=== PATIENT | female | born 1940 | race Caucasian/White ===

== ENCOUNTER 2019-11-28 12:42 | Inpatient (IN) | payer OTHER ==
[~2019-11-28] VITALS: Ht 157.5 cm; Wt 69.1 kg
[~2019-11-28 12:42] MED LIST: ACT30 PO; CIPRO500 MG PO; CLARITIN10 MG PO; COR6 PO; COUMADIN2 MG PO; DIA5 PO; FER300 PO; LAC PO; LOSARTAN POTASS50 M1 PO; METFORMIN HCL500 MG; MEV20 PO; MIRUD PO; MOT400 PO; OMEPRAZOLE DR20 M1 PO; PLA75 PO; THERAGRAN-M1 TA4 PO; TRADJENTA5 M1 PO; VITAMIN D32000 I2 PO; ZES20 PO; ZIT250 PO; ZOSYN2.25 GM/50 IV
[2019-11-28 13:21] VITALS: Ht 157.5 cm; Wt 69.1 kg
[2019-11-28 14:24] LABS: BASOPHIL % 0.7 % (0-2); PLATELET COUNT 367 x10^3mcL (130-400); RED CELL DISTRIBUTION WIDTH 15.6 % (11.5-14.5)
[2019-11-28 14:39] LABS: ALKALINE PHOSPHATASE 129 U/L (46-116); ALT/SGPT 19 U/L (14-59); AST/SGOT 13 U/L (15-37); BILIRUBIN TOTAL 0.4 mg/dL (0.20-1.00); CALCIUM 8.2 mg/dL (8.5-10.1); CARBON DIOXIDE 29.9 mmol/L (21-32); CHLORIDE SERUM 98 mmol/L (98-107); GLUCOSE SERUM 184 mg/dL (74-106); POTASSIUM SERUM 3.7 mmol/L (3.5-5.1); SODIUM SERUM 138 mmol/L (136-145); TOTAL PROTEIN, SERUM 7.7 g/dL (6.4-8.2)
[2019-11-28 14:45] LABS: ALBUMIN 3.1 g/dL (3.4-5.0); CREATININE SERUM 5.3 mg/dL (0.6-1.0)
[2019-11-28 18:02] LABS: FREE T4 1.18 ng/dL (0.76-1.46); FREE THYROXINE INDEX 3.4 ug/dL (1.4-4.5); T4(THYROXINE) 8.8 ug/dL (4.7-13.3)
[2019-11-28 18:04] LABS: T3 TOTAL 0.66 ng/mL
[2019-11-28 18:13] LABS: MAGNESIUM 1.8 mg/dL (1.8-2.4); PHOSPHOROUS 3.1 mg/dL (2.5-4.9)
[2019-11-28 18:15] LABS: CHOLESTEROL/HDL RATIO 2.6
[2019-11-28 18:48] VITALS: BP 146/87
[2019-11-28 20:56] VITALS: BP 146/44
[2019-11-29 05:37] VITALS: BP 127/48
[2019-11-29 06:40] LABS: BASOPHIL % 1.5 % (0-2); PLATELET COUNT 348 x10^3mcL (130-400)
[2019-11-29 06:53] LABS: CALCIUM 8.2 mg/dL (8.5-10.1); CARBON DIOXIDE 32.3 mmol/L (21-32); CHLORIDE SERUM 101 mmol/L (98-107); GLUCOSE SERUM 121 mg/dL (74-106); MAGNESIUM 2.1 mg/dL (1.8-2.4); PHOSPHOROUS 4.5 mg/dL (2.5-4.9); POTASSIUM SERUM 4.3 mmol/L (3.5-5.1); SODIUM SERUM 141 mmol/L (136-145)
[2019-11-29 06:57] LABS: CREATININE SERUM 6.3 mg/dL (0.6-1.0)
[2019-11-29 07:25] LABS: RED CELL DISTRIBUTION WIDTH 15.6 % (11.5-14.5)
[2019-11-29 09:50] VITALS: BP 112/31
[2019-11-29 13:44] VITALS: BP 138/60
[2019-11-29 18:04] VITALS: BP 145/54
[2019-11-29 20:57] VITALS: BP 155/36
[2019-11-30 06:03] VITALS: BP 127/31
[2019-11-30 06:50] LABS: BASOPHIL % 0.7 % (0-2); PLATELET COUNT 364 x10^3mcL (130-400)
[2019-11-30 07:16] LABS: CALCIUM 8.6 mg/dL (8.5-10.1); CARBON DIOXIDE 30.2 mmol/L (21-32); CHLORIDE SERUM 104 mmol/L (98-107); GLUCOSE SERUM 132 mg/dL (74-106); MAGNESIUM 1.9 mg/dL (1.8-2.4); PHOSPHOROUS 3.5 mg/dL (2.5-4.9); POTASSIUM SERUM 4.5 mmol/L (3.5-5.1); SODIUM SERUM 144 mmol/L (136-145)
[2019-11-30 07:17] LABS: CREATININE SERUM 4.4 mg/dL (0.6-1.0)
[2019-11-30 07:25] LABS: RED CELL DISTRIBUTION WIDTH 15.7 % (11.5-14.5)
[2019-11-30 07:56] VITALS: BP 138/44
[2019-11-30 11:55] VITALS: BP 129/33
[2019-11-30 17:51] VITALS: BP 145/64
[2019-11-30 22:58] VITALS: BP 136/44
[2019-12-01 06:27] VITALS: BP 133/49
[2019-12-01 07:11] LABS: BASOPHIL % 0.6 % (0-2); PLATELET COUNT 339 x10^3mcL (130-400)
[2019-12-01 07:16] LABS: RED CELL DISTRIBUTION WIDTH 15.5 % (11.5-14.5)
[2019-12-01 07:31] LABS: CALCIUM 8.2 mg/dL (8.5-10.1); CARBON DIOXIDE 28.1 mmol/L (21-32); CHLORIDE SERUM 100 mmol/L (98-107); GLUCOSE SERUM 131 mg/dL (74-106); POTASSIUM SERUM 4.7 mmol/L (3.5-5.1); SODIUM SERUM 138 mmol/L (136-145)
[2019-12-01 09:16] VITALS: BP 147/50
[2019-12-01 12:33] VITALS: BP 133/47
[2019-12-01 17:42] VITALS: BP 137/57
[2019-12-01 23:19] VITALS: BP 150/41
[2019-12-02 06:05] VITALS: BP 157/51
[2019-12-02 07:02] LABS: BASOPHIL % 1.5 % (0-2); PLATELET COUNT 330 x10^3mcL (130-400)
[2019-12-02 07:07] LABS: RED CELL DISTRIBUTION WIDTH 17.7 % (11.5-14.5)
[2019-12-02 07:22] LABS: CALCIUM 8.5 mg/dL (8.5-10.1); CARBON DIOXIDE 27.6 mmol/L (21-32); CHLORIDE SERUM 103 mmol/L (98-107); GLUCOSE SERUM 115 mg/dL (74-106); SODIUM SERUM 141 mmol/L (136-145)
[2019-12-02 07:27] LABS: CREATININE SERUM 4.1 mg/dL (0.6-1.0)
[2019-12-02 10:22] VITALS: BP 156/41
[2019-12-02 20:38] VITALS: BP 149/45
[2019-12-03 05:50] VITALS: BP 159/86
[2019-12-03 06:24] LABS: BASOPHIL % 0.7 % (0-2); PLATELET COUNT 347 x10^3mcL (130-400)
[2019-12-03 06:52] LABS: RED CELL DISTRIBUTION WIDTH 17.3 % (11.5-14.5)
[2019-12-03 07:01] LABS: SODIUM SERUM 138 mmol/L (136-145)
[2019-12-03 07:02] LABS: CHLORIDE SERUM 101 mmol/L (98-107)
[2019-12-03 07:03] LABS: CARBON DIOXIDE 25.8 mmol/L (21-32); GLUCOSE SERUM 166 mg/dL (74-106); POTASSIUM SERUM 5.6 mmol/L (3.5-5.1)
[2019-12-03 07:04] LABS: CREATININE SERUM 5.8 mg/dL (0.6-1.0)
[2019-12-03] MEDS ORDERED: ELIQUIS2.5 MG PO (08:44)
[2019-12-03] MEDS ORDERED: LIPI10 PO (08:46)
[2019-12-03] MEDS ORDERED: COR6 PO (08:47)
[2019-12-03] MEDS ORDERED: COZ50 PO (08:47)
[2019-12-03] MEDS ORDERED: NOR5 PO (08:47)
[2019-12-03 09:34] VITALS: BP 149/40
[2019-12-03 10:00] VITALS: BP 140/51
== END 2019-12-03 12:01 | disposition home health service (06) | DRG 291 ==
LOC: ED 12:42 → DU 17:02 → MU 11-30 13:44
PROVIDERS: Specialist; ADMIT Internal Medicine
PROC: 3E1M39Z Irrigation of Peritoneal Cavity using Dialysate, Percutaneous Approach (ICD-10-PCS; principal; 2019-12-01)
PROC: 30233N1 Transfusion of Nonautologous Red Blood Cells into Peripheral Vein, Percutaneous Approach (ICD-10-PCS; 2019-12-01)
DX: I13.2 Hypertensive heart and chronic kidney disease with heart failure and with stage 5 chronic kidney disease, or end stage renal disease (principal); N18.6 End stage renal disease; I50.43 Acute on chronic combined systolic (congestive) and diastolic (congestive) heart failure; Z68.1 Body mass index [BMI] 19.9 or less, adult; E44.1 Mild protein-calorie malnutrition; E11.22 Type 2 diabetes mellitus with diabetic chronic kidney disease; E11.65 Type 2 diabetes mellitus with hyperglycemia; I25.10 Atherosclerotic heart disease of native coronary artery without angina pectoris; D63.8 Anemia in other chronic diseases classified elsewhere; E78.5 Hyperlipidemia, unspecified; Z99.2 Dependence on renal dialysis; Z79.84 Long term (current) use of oral hypoglycemic drugs; Z95.5 Presence of coronary angioplasty implant and graft; Z89.511 Acquired absence of right leg below knee; Z99.3 Dependence on wheelchair
CPT/HCPCS: 82962; 83880; 84439; 85378; 97116-GP; 97530-GP; G0378; J1940; J7030; P9016; Q0092